=== PATIENT | male | born 1970 | race Caucasian/White ===

== ENCOUNTER 2019-10-10 14:13 | Outpatient (CLI) | payer OTHER ==
[~2019-10-10 14:13] MED LIST: LEVO88CA2
== END 2019-10-10 23:59 | disposition home or self-care (01) ==
LOC: RAD 14:13
PROVIDERS: ATTEND Internal Medicine Endocrinology, Diabetes & Metabolism
DX: M19.012 Primary osteoarthritis, left shoulder (principal)